=== PATIENT | female | born 1985 | race Caucasian/White ===

== ENCOUNTER 2025-05-25 15:09 | Outpatient (CLI) | payer OTHER | END 2025-05-25 15:11 | disposition home or self-care (01) | LOC: SONOGRAMA 15:09 | PROVIDERS: ATTEND Pathology Anatomic Pathology | DX: D34 Benign neoplasm of thyroid gland (principal); D44.0 Neoplasm of uncertain behavior of thyroid gland; E07.89 Other specified disorders of thyroid; E04.2 Nontoxic multinodular goiter ==